=== PATIENT | female | born 1985 | race Caucasian/White ===

== ENCOUNTER 2021-08-30 20:17 | Emergency (ER) | payer BC ==
--- NOTE | 2021-08-30 22:26 | EDM.PDOC ---
ED HPI GENERAL MEDICAL PROBLEM - General Chief Complaint: Abdominal Pain Stated Complaint: STOMACH PAIN Time Seen by Provider: 08/30/21 20:28 Source of Information: Reports: Patient History Limitations: Reports: No Limitations - History of Present Illness INITIAL COMMENTS - FREE TEXT/NARRATIVE: Janay is a 35-year-old female presenting to the ED with acute onset of severe epigastric and right upper quadrant pain that occurred earlier today. She has been having this on and off for the last month. She states that at times she feels bloated and has passed some gas. She does have a history for gluten intolerance but states that she is pretty careful about what she eats. She denies any fever or chills, nausea or vomiting, constipation or diarrhea. Today the pain was sharp and stabbing in the epigastric region. She has not had any abdominal surgeries. Abdominal Pain Score (Numeric/FACES): 6 - Related Data Allergies Allergy/AdvReac Type Severity Reaction Status Date / Time No Known Allergies Allergy Verified 08/30/21 20:28 Home Meds: Home Meds Loratadine/Pseudoephedrine [Claritin-D 24 Hour Tablet] 1 tab PO DAILY 08/30/21 [History] Multivit with Iron,Minerals [Flintstones Complete] 1 tab PO DAILY 08/30/21 [History] Past Medical History HEENT History: Reports: Impaired Vision Genitourinary History: Reports: Other (See Below) Other Genitourinary History: IUD in place Psychiatric History: Reports: Anxiety, Depression - Infectious Disease History Infectious Disease History: Reports: Chicken Pox - Past Surgical History Female Surgical History: Reports: Section Social & Family History - Family History Family Medical History: No Pertinent Family History - Tobacco Use Tobacco Use Status *Q: Current Every Day Tobacco User Years of Tobacco use: 5 Packs/Tins Daily: 0.5 - Caffeine Use Caffeine Use: Reports: Coffee - Recreational Drug Use Recreational Drug Use: Yes Recreational Drug Type: Reports: Marijuana/Hashish Recreational Drug Use Frequency: Socially ED ROS GENERAL - Review of Systems Review Of Systems: See Below Constitutional: Reports: No Symptoms HEENT: Reports: No Symptoms Respiratory: Reports: No Symptoms Cardiovascular: Reports: No Symptoms Endocrine: Reports: No Symptoms GI/Abdominal: Reports: Abdominal Pain (Epigastric and right upper quadrant stabbing abdominal pain. At times it wakes her from sleep.). Denies: Constipation, Diarrhea, Nausea, Vomiting : Reports: No Symptoms Musculoskeletal: Reports: No Symptoms Skin: Reports: No Symptoms Neurological: Reports: No Symptoms Psychiatric: Reports: No Symptoms Hematologic/Lymphatic: Reports: No Symptoms Immunologic: Reports: No Symptoms ED EXAM, GI/ABD - Physical Exam Exam: See Below Exam Limited By: No Limitations General Appearance: Alert, Anxious, Mild Distress Eyes: Bilateral: EOMI Throat/Mouth: Normal Inspection, Normal Oropharynx, Normal Voice, No Airway Compromise Head: Atraumatic, Normocephalic Neck: Normal Inspection, Supple Respiratory/Chest: No Respiratory Distress, Lungs Clear, Normal Breath Sounds Cardiovascular: Normal Peripheral Pulses, Regular Rate, Rhythm, No Murmur GI/Abdominal Exam: Normal Bowel Sounds, Soft, Distended (Mild distention with tympany to percussion throughout the upper abdomen.), Guarding (Right upper quadrant guarding. Plus or minus Flores sign.), Tender (Right upper quadrant and epigastric tenderness). No: Rigid, Rebound Back Exam: Normal Inspection Extremities: Normal Inspection Neurological: Alert, Oriented, Normal Cognition, No Motor/Sensory Deficits Psychiatric: Normal Affect, Normal Mood Skin Exam: Warm, Dry Course - Vital Signs Last Recorded V/S: Last Vital Signs Temp 36.8 C 08/30/21 20:30 Pulse 80 08/30/21 20:30 Resp 16 08/30/21 20:30 BP 124/81 08/30/21 20:30 Pulse Ox 96 08/30/21 20:30 - Orders/Labs/Meds Orders: Active Orders 24 hr Category Date Time Status Abdomen Ltd [US] Stat Exams 08/30/21 20:36 Taken Labs: Laboratory Tests 08/30/21 08/30/21 08/30/21 Range/Units 20:55 20:55 20:55 WBC 13.8 H (4.5-11.0) K/uL RBC 4.36 (3.30-5.50) M/uL Hgb 13.0 (12.0-15.0) g/dL Hct 38.6 (36.0-48.0) % MCV 89 (80-98) fL MCH 30 (27-31) pg MCHC 34 (32-36) % Plt Count 358 (150-400) K/uL Neut % (Auto) 60.8 (36-66) % Lymph % (Auto) 31.7 (24-44) % Gem % (Auto) 5.5 (2-6) % Eos % (Auto) 1.3 L (2-4) % Baso % (Auto) 0.7 (0-1) % Sodium 142 (140-148) mmol/L Potassium 3.8 (3.6-5.2) mmol/L Chloride 105 (100-108) mmol/L Carbon Dioxide 27 (21-32) mmol/L Anion Gap 10.0 (5.0-14.0) mmol/L BUN 11 (7-18) mg/dL Creatinine 0.8 (0.6-1.0) mg/dL Est Cr Clr Drug Dosing 71.17 mL/min Estimated GFR (MDRD) > 60 (>60) Glucose 93 (74-106) mg/dL Lactic Acid 0.8 (0.4-2.0) mmol/L Calcium 8.7 (8.5-10.1) mg/dL Total Bilirubin 0.2 (0.2-1.0) mg/dL AST 18 (15-37) U/L ALT 29 (12-78) U/L Alkaline Phosphatase 64 (46-116) U/L Total Protein 6.8 (6.4-8.2) g/dL Albumin 3.5 (3.4-5.0) g/dL Globulin 3.3 (2.3-3.5) g/dL Albumin/Globulin Ratio 1.1 L (1.2-2.2) Lipase 95 (73-393) U/L - Radiology Interpretation Free Text/Narrative:: Reviewed the ultrasound of the right upper quadrant showing a contracted gallbladder with a normal gallbladder wall thickness. Common bile duct is also normal in caliber. There is no evidence for any cholelithiasis or sludge. There is no evidence for abnormality of the pancreas, liver, or right kidney. Was a fair amount of stool and flatus seen on ultrasound across the transverse colon. - Re-Assessments/Exams Free Text/Narrative Re-Assessment/Exam: 08/30/21 22:37 I reviewed the patient's labs showing a leukocytosis of 13.8 with a normal differential. Her hemoglobin is 13.0 with a hematocrit of 38.6 and platelet count of 358,000. Her sodium is 142 with a potassium of 3.8, chloride of 105, carbon of 27, BUN of 11 with a creatinine of 0.8 and a glucose of 93. Lipase is normal at 85. AST and ALT are both normal. Overall, it appears that the patient may be having pain related to gastrointestinal flatus. We discussed measures including the use of simethicone- based medications like Maalox, Di-Gel, Becky, or Gaviscon. I reassured the patient that I do not see anything worrisome in her work-up today. I did recommend she do a food diary to see if there were certain foods and may be triggering the symptoms. She should follow-up with her primary care provider for additional work-up if needed. At this time she is suitable for discharge in satisfactory condition. Indications return to ED were discussed. Departure - Departure Time of Disposition: 22:24 Disposition: Home, Self-Care 01 Clinical Impression: Epigastric pain - Discharge Information Instructions: Abdominal Pain, Adult Referrals: PCP,None [Primary Care Provider] - Forms: ED Department Discharge Care Plan Goals: Your work-up today shows you have a mild elevation of your white blood cell count with a normal differentiation but otherwise the remainder of your blood work was unremarkable including your liver enzymes, bilirubin, and pancreatic enzymes. Your ultrasound was unremarkable for any findings concerning your gallbladder or kidney. Your liver also appeared to be normal. There was a fair amount of stool seen throughout the colon with gas which may have been the source of the pain. At this time I would recommend doing a dietary diary to see if there are certain foods that seem to set this off. You may want to try Maalox with onset of symptoms or Gas-X or Gaviscon which all contain simethicone to break up gas if that is the cause. Sepsis Event Note (ED) - Evaluation Sepsis Screening Result: No Definite Risk - Focused Exam Vital Signs: Vital Signs Temp Pulse Resp BP Pulse Ox 08/30/21 20:30 36.8 C 80 16 124/81 96 - Problem List & Annotations (1) Epigastric pain SNOMED Code(s): 35063278 Code(s): R10.13 - EPIGASTRIC PAIN Status: Acute Priority: High Current Visit: Yes - Problem List Review Problem List Initiated/Reviewed/Updated: Yes - My Orders Last 24 Hours: My Active Orders 08/30/21 20:36 Abdomen Ltd [US] Stat - Assessment/Plan Last 24 Hours: My Active Orders 08/30/21 20:36 Abdomen Ltd [US] Stat
--- NOTE | 2021-08-31 09:19 | US ---
Abdomen Ltd CLINICAL HISTORY: Right upper quadrant pain COMPARISON: None. TECHNIQUE: Real-time images were obtained through the right upper quadrant. FINDINGS: The liver is free of mass or biliary dilatation. Echotexture is homogeneous. The gallbladder is partially contracted. No stones are seen The common bile duct measures 5 mm. The pancreas is free of mass. The right kidney has a normal appearance. The IVC is normal. IMPRESSION: Normal right upper quadrant ultrasound
== END 2021-08-30 22:48 | disposition home or self-care (01) ==
LOC: JP.ED 20:17
DX: R10.13 Epigastric pain (principal); Z72.0 Tobacco use
CPT/HCPCS: 36415; 76705; 76705-26; 80053; 83605; 83690; 85025; 99284-25